=== PATIENT | female | born 1990 | race Caucasian/White ===

== ENCOUNTER 2017-11-29 15:35 | Emergency (ER) | payer SELFPAY ==
[2017-11-29 17:34] LABS: ABS Basophils 0.1 10^3/ul (0-0.2); ABS Eosinophils 0.1 10^3/ul (0-0.6); ABS Lymphocytes 2.7 10^3/ul (1.0-4.8); ABS Monocytes 0.4 10^3/ul (0-0.8); ABS Neutrophils 5.9 10^3/ul (1.5-7.7); ABS Nucleated RBC 0 10^3/ul; Eosinophil % 0.9 % (0-6); Hematocrit 40 % (35-47); Hemoglobin 13.2 g/dl (12.0-16.0); Lymphocyte % 29.2 % (25-47); Mean Corpuscular HGB Conc 33 g/dl (31-36); Mean Corpuscular Hemoglobin 32 pg (27-31); Mean Corpuscular Volume 95 fL (80-97); Mean Platelet Volume 7.4 um3 (7.4-10.4); Nucleated Red Blood Cells % 0.1; Platelet Count 269 10^3/ul (150-450); Red Blood Count 4.18 10^6/ul (4.00-5.40); Red Cell Distribution Width 14 % (10.5-15); White Blood Count 9.1 10^3/ul (3.5-10.8)
[2017-11-29] MEDS ORDERED: Albuterol/Ipratropium NEB.SOL* Albuterol 2.5 MG/Ipratropium 0.5 MG 3 ML INH ONE (17:44)
[2017-11-29 17:46] LABS: EGFR Non-African American 103.7 (>60)
--- NOTE | 2017-11-29 17:46 | ED ---
HPI Chest Pain - HPI Summary HPI Summary: The pt is a 27 y/o female presenting to [facility] c/o mid-sternal CP since 11:00 today. She also notes intermittent arm pain worsened at night, SOB, CONRAD and back pain but denies cough, abd pain, and neck pain. The pt denies any use of control or recent long distance travel. The pt also expressed concern about the hardware in her R ankle, laced after a trimalleolar fracture. She is concerned that it might poke through her skin. - History of Current Complaint Chief Complaint: EDChestPainROMI Time Seen by Provider: 11/29/17 17:09 Hx Obtained From: Patient Onset/Duration: Started Hours Ago - 11:00 today, Still Present Timing: Constant Current Severity: None Pain Intensity: 0 Pain Scale Used: 0-10 Numeric Chest Pain Location: Mid Sternal Chest Pain Radiates: Yes Chest Pain Radiates To:: Arm Associated Signs and Symptoms: Positive: Negative - Neck pain, Chest Pain, Headaches, Shortness of Breath, Back Pain, Other: - Positive: Neck pain. Negative: Cough, Abdominal Pain - Allergy/Home Medications Allergies/Adverse Reactions: Allergies Allergy/AdvReac Type Severity Reaction Status Date / Time amoxicillin Allergy Hives Verified 11/29/17 15:43 Penicillins Allergy Hives Verified 11/29/17 15:44 Home Medications: Home Medications NK [No Home Medications Reported] 11/29/17 [History Confirmed 11/29/17] PMH/Surg Hx/FS Hx/Imm Hx Previously Healthy: No Endocrine/Hematology History: Denies: Hx Diabetes Cardiovascular History: Denies: Hx Hypertension Respiratory History: Denies: Hx Asthma Musculoskeletal History: Reports: Other Musculoskeletal History - Trimalleolar fractures - Surgical History Surgery Procedure, Year, and Place: Othopedic surgery - Immunization History Date of Tetanus Vaccine: < 10 years Date of Influenza Vaccine: 1328-5730 Immunizations Up to Date: Yes Infectious Disease History: No Infectious Disease History: Denies: Traveled Outside the [place] in Last 30 Days - Social History Alcohol Use: Occasionally Alcohol Amount: once every week or every other week Substance Use Type: Reports: None Smoking Status (MU): Never Smoked Tobacco Review of Systems ENT: Negative - Neck pain Positive: Chest Pain Negative: Shortness Of Breath, Cough Positive: Other - Positive: back pain Positive: Headache All Other Systems Reviewed And Are Negative: Yes Physical Exam - Summary Physical Exam Summary: GENERAL: Patient is a well developed and nourished F who is lying comfortable in the stretcher. Patient is not in any acute respiratory distress. HEAD AND FACE: Normocephalic EYES: PERRLA, EOMI x 2. EARS: Hearing grossly intact. MOUTH: Oropharynx within normal limits. NECK: Supple, trachea is midline, no adenopathy, no JVD, no carotid bruit. CHEST: Symmetric, no tenderness at palpation LUNGS: Clear to auscultation bilaterally. No wheezing or crackles. CVS: Regular rate and rhythm, S1 and S2 present, no murmurs or gallops appreciated. ABDOMEN: Soft, non-tender. Bowel sounds are normal. No abdominal abnormal pulsations. EXTREMITIES: Full ROM in all major joints, no edema, no cyanosis or clubbing; Could palpate the screw on her R ankle NEURO: Alert and oriented x 3. No acute neurological deficits. Speech is normal and follows commands. SKIN: Dry and warm Triage Information Reviewed: Yes Vital Signs On Initial Exam: Initial Vitals Temp Pulse Resp BP Pulse Ox 97.8 F 65 18 100/35 100 11/29/17 15:39 11/29/17 15:39 11/29/17 15:39 11/29/17 15:39 11/29/17 15:39 Vital Signs Reviewed: Yes Diagnostics - Vital Signs Vital Signs Temp Pulse Resp BP Pulse Ox 11/29/17 15:39 97.8 F 65 18 100/35 100 - Laboratory Lab Results: Lab Results 11/29/17 Range/Units 17:19 WBC 9.1 (3.5-10.8) 10^3/ul RBC 4.18 (4.00-5.40) 10^6/ul Hgb 13.2 (12.0-16.0) g/dl Hct 40 (35-47) % MCV 95 (80-97) fL MCH 32 H (27-31) pg MCHC 33 (31-36) g/dl RDW 14 (10.5-15) % Plt Count 269 (150-450) 10^3/ul MPV 7.4 (7.4-10.4) um3 Neut % (Auto) 65.1 (38-83) % Lymph % (Auto) 29.2 (25-47) % Hughes % (Auto) 3.9 (0-7) % Eos % (Auto) 0.9 (0-6) % Baso % (Auto) 0.9 (0-2) % Absolute Neuts (auto) 5.9 (1.5-7.7) 10^3/ul Absolute Lymphs (auto) 2.7 (1.0-4.8) 10^3/ul Absolute Monos (auto) 0.4 (0-0.8) 10^3/ul Absolute Eos (auto) 0.1 (0-0.6) 10^3/ul Absolute Basos (auto) 0.1 (0-0.2) 10^3/ul Absolute Nucleated RBC 0 10^3/ul Nucleated RBC % 0.1 Result Diagrams: 11/29/17 17:19 11/29/17 17:19 Lab Statement: Any lab studies that have been ordered have been reviewed, and results considered in the medical decision making process. - Radiology CXR Radiology Interpretation Completed By: Radiologist - IMPRESSION: NO EVIDENCE FOR ACTIVE CARDIOPULMONARY DISEASE. The ED physician has reviewed this radiology report. R ankle X-Ray Radiology Interpretation Completed By: Radiologist - IMPRESSION: 1. NO EVIDENCE FOR ACUTE FINDING. 2. THE SURGICAL HARDWARE APPEARS INTACT. The ED physician has reviewed this radiology report. - EKG 15:51 Cardiac Rate: NL - 68 bpm EKG Interpretation: This is a normal EKG; No ST elevation; No ischemic changes Chest Pain Course/Dx - Course Course Of Treatment: A 27 year-old F presents to the ED with a CC of mid- sternal CP since 11:00 today. She also notes intermittent arm pain worsened at night, SOB, CONRAD and back pain but denies cough, abd pain, and neck pain. The pt denies any use of control or recent long distance travel. The pt also expressed concern about the hardware in her R ankle, laced after a trimalleolar fracture. She is concerned that it might poke through her skin. A physical exam reveals a screw on her R ankle with palpation. A CXR and R ankle A-Ray and EKG are all unremarkable. In the ED course, pt was given Albuterol and Ibuprofen which improved the symptoms. The patient will be discharged with a final Dx of chest pain. I discussed results with patient and she agrees with this plan. She is hemodynamically stable upon discharge. Strict return precautions given and she will otherwise follow up with her PCP.Allergies noted. - Diagnoses Provider Diagnoses: Chest pain Discharge - Sign-Out/Discharge Documenting (check all that apply): Patient Departure - DC - Discharge Plan Condition: Stable Disposition: HOSPICE MEDICAL FACILITY Patient Education Materials: Chest Pain (ED) Referrals: [facility] [Outside] Additional Instructions: Return to ED for any new or worsening symptoms - Attestation Statements Document Initiated by Scribe: Yes Documenting Scribe: Celine Obando Provider For Whom Scribe is Documenting (Include Credential): Dr. Yelena Patel MD Scribe Attestation: Celine Pepe , scribed for Dr. Yelena Patel MD on 11/29/17 at 1958.
[2017-11-29 18:00] LABS: INR 0.85 (0.77-1.02)
[2017-11-29] MEDS ORDERED: Ibuprofen TAB* 800 MG PO ONE (18:28)
--- NOTE | 2017-11-29 18:46 | RAD ---
INDICATION: Chest pain. COMPARISON: There are no relevant prior studies available for comparison. TECHNIQUE: Dual-energy PA and lateral views of the chest were obtained. FINDINGS: The heart is within normal limits in size. Mediastinal and hilar contours appear within normal limits. The lungs are clear. No pleural effusion is present. No pneumothorax is seen. IMPRESSION: NO EVIDENCE FOR ACTIVE CARDIOPULMONARY DISEASE.
--- NOTE | 2017-11-29 18:50 | RAD ---
INDICATION: Loosening of hardware status post operative reduction internal fixation trimalleolar fracture. COMPARISON: There are no prior studies available for comparison. TECHNIQUE: 3 views of the right ankle were obtained. FINDINGS: The patient is status post operative reduction internal fixation of fractures of the medial and lateral malleoli. There are metallic plates and intrafragmentary screws present along the lateral aspect of the distal fibula and medial aspect of the distal tibia. The fractures appear healed. The surgical hardware appears intact. There are lucencies in the distal tibia and calcaneus likely representing additional postsurgical changes. IMPRESSION: 1. NO EVIDENCE FOR ACUTE FINDING. 2. THE SURGICAL HARDWARE APPEARS INTACT.
[2017-11-29 19:05] VITALS: BP 114/70
== END 2017-11-29 19:04 | disposition hospice, inpatient (51) ==
LOC: ED 15:35
DX: R07.9 Chest pain, unspecified (principal); M54.9 Dorsalgia, unspecified; R51 Headache
CPT/HCPCS: 36415; 71046; 80053; 83735; 84484; 84702; 85025; 85379; 85610; 85730; 93005; 99282; A9270-GY

== ENCOUNTER 2019-01-04 08:37 | Emergency (ER) | payer MEDICAID, OTHER ==
[2019-01-04 08:52] VITALS: BP 105/70
--- NOTE | 2019-01-04 09:10 | ED ---
Throat Pain/Nasal Congestion - HPI Summary HPI Summary: 28 yr old female with the complaint of nasal congestion, cough, sore throat, ear pain. Onset of symptoms 5 days ago. Symptoms are moderate. No NV. No fever. No drooling, no stridor. No other complaints. - History of Current Complaint Chief Complaint: UCEar Time Seen by Provider: 01/04/19 08:58 - Allergies/Home Medications Allergies/Adverse Reactions: Allergies Allergy/AdvReac Type Severity Reaction Status Date / Time amoxicillin Allergy Hives Verified 01/04/19 08:52 Penicillins Allergy Hives Verified 01/04/19 08:52 PMH/Surg Hx/FS Hx/Imm Hx Endocrine/Hematology History: Denies: Hx Diabetes Cardiovascular History: Denies: Hx Hypertension Respiratory History: Denies: Hx Asthma Musculoskeletal History: Reports: Other Musculoskeletal History - Trimalleolar fractures - Surgical History Surgery Procedure, Year, and Place: Othopedic surgery. tonsillectomy 2008 - Immunization History Date of Tetanus Vaccine: < 10 years Date of Influenza Vaccine: [id number] Infectious Disease History: No Infectious Disease History: Denies: Traveled Outside the [place] in Last 30 Days - Family History Known Family History: Positive: Hypertension - Social History Occupation: Employed Full-time Alcohol Use: Occasionally Alcohol Amount: once every week or every other week Substance Use Type: Reports: None Smoking Status (MU): Never Smoked Tobacco Review of Systems Constitutional: Negative Eyes: Negative Positive: Sore Throat, Ear Ache, Nasal Discharge Positive: Cough All Other Systems Reviewed And Are Negative: Yes Physical Exam Triage Information Reviewed: Yes Vital Signs On Initial Exam: Initial Vitals Temp Pulse Resp BP Pulse Ox 98.4 F 85 16 105/70 99 01/04/19 08:50 01/04/19 08:50 01/04/19 08:50 01/04/19 08:50 01/04/19 08:50 Vital Signs Reviewed: Yes Appearance: Positive: Well-Appearing, No Pain Distress Skin: Positive: Warm, Skin Color Reflects Adequate Perfusion Head/Face: Positive: Normal Head/Face Inspection Eyes: Positive: EOMI ENT: Positive: Pharyngeal erythema, Nasal congestion, TM dull - bilateral, Uvula midline. Negative: Tonsillar swelling, Tonsillar exudate, Trismus, Muffled voice, Sinus tenderness Neck: Positive: Nontender Respiratory/Lung Sounds: Positive: Clear to Auscultation, Breath Sounds Present Cardiovascular: Positive: RRR. Negative: Murmur Abdomen Description: Negative: Distended Musculoskeletal: Positive: Strength/ROM Intact Neurological: Positive: Sensory/Motor Intact, Alert, Oriented to Person Place, Time, CN Intact II-III, Normal Gait, Speech Normal Psychiatric: Positive: Normal Diagnostics - Vital Signs Vital Signs Temp Pulse Resp BP Pulse Ox 01/04/19 08:50 98.4 F 85 16 105/70 99 - Laboratory Lab Statement: Any lab studies that have been ordered have been reviewed, and results considered in the medical decision making process. EENT Course/Dx - Course Course Of Treatment: 28 yr old with URI. DC home. - Diagnoses Provider Diagnoses: Upper respiratory infection Discharge ED - Sign-Out/Discharge Documenting (check all that apply): Patient Departure All imaging exams completed and their final reports reviewed: No Studies - Discharge Plan Condition: Good Disposition: HOME Patient Education Materials: Upper Respiratory Infection (ED) Referrals: No Primary Care Phys,NOPCP [Primary Care Provider] - [facility] [Outside] - 2 Days - Billing Disposition and Condition Condition: GOOD Disposition: Home
== END 2019-01-04 09:21 | disposition home or self-care (01) ==
LOC: UCCORT 08:37
DX: J06.9 Acute upper respiratory infection, unspecified (principal); H92.09 Otalgia, unspecified ear; Z88.0 Allergy status to penicillin
CPT/HCPCS: 99211; G0463